=== PATIENT | male | born 1995 | race American Indian/Alaskan Native ===

== ENCOUNTER 2018-11-20 21:40 | Emergency (ER) | payer OTHER ==
--- NOTE | 2018-11-20 22:08 | Event Note ---
ED Screening Note ED Screening Note: testicular pain and dysuria This initial assessment/diagnostic orders/clinical plan/treatment(s) is/are sub ject to change based on patients health status, clinical progression and re- assessment by fellow clinical providers in the ED. Further treatment and workup at subsequent clinical providers discretion. Patient/guardian urged not to elope from the ED as their condition may be serious if not clinically assessed and managed. Initial orders include:
--- NOTE | 2018-11-20 23:37 | Ultrasound Report ---
PROCEDURE: US TESTICULAR DOPPLER COMP TECHNIQUE: Real-time villagomez-scale and color flow Doppler sonography in multiple planes of the scrotum, testicles, and epididymes was performed. Velocity spectral waveform analysis and color Doppler imagi ng of the arterial inflow and venous outflow of the testicles was performed with image documentation. HISTORY: testicular pain COMPARISONS: None . FINDINGS: RIGHT TESTICLE: Size: 3.8 x 2.2 x 3.3 cm. Echogenicity of the right testicle appears normal. No masses are seen. No evidence of hydrocele. Righ t epididymis is unremarkable. Arterial and venous flow seen with Doppler imaging. Epididymis showed n o abnormality. LEFT TESTICLE Size: 3.4 x 1.5 x 2.5 cm.. Echogenicity of the testicles appears homogeneous and normal in appearance. No mass is identified. No hydroceles are seen. Arterial and venous flow visualized in left testicle. 2.5 mm epididymal cyst vi sualized on the left. Epididymis otherwise unremarkable. IMPRESSION: Small epididymal cyst visualized on the left. No other abnormalities are seen. . This document is electronically signed by Robles Baron MD., November 20 2018 11:35:41 PM ET
[2018-11-21 00:21] VITALS: BP 118/76
[2018-11-21 00:28] LABS: Bilirubin,Urine NEG (Negative); Blood,Urine NEG (Negative); Color,Urine Yellow (Yellow); Mucus,Urine FEW /HPF; Protein,Urine <15 mg/dL mg/dL (Negative)
[2018-11-21] MEDS ORDERED: ZITHROMAX PO STA (00:48)
[2018-11-21] MEDS ORDERED: XYLOCAINE 1% MPF 5 mL INFILTRATI ONE (00:48)
[2018-11-21] MEDS ORDERED: ROCEPHIN IM STA (00:48)
--- NOTE | 2018-11-21 00:48 | Emergency Department Report ---
ED Male HPI - General Chief complaint: Urogenital-Male Stated complaint: UTI Time Seen by Provider: 11/20/18 22:06 Source: patient Mode of arrival: Ambulatory Limitations: No Limitations - History of Present Illness Initial comments: 23-year-old uncircumcised male presents to the emergency department complaining of having an STD complaining of green discharge MD Complaint: penile discharge, dysuria Location: penis Severity: mild Quality: burning Consistency: constant Improves with: none Worsens with: none - Related Data Sexually active: No Allergies Allergy/AdvReac Type Severity Reaction Status Date / Time No Known Allergies Allergy Verified 11/20/18 21:43 ED Review of Systems ROS: Stated complaint: UTI Other details as noted in HPI Constitutional: denies: chills, fever Eyes: denies: eye pain, eye discharge, vision change ENT: denies: ear pain, throat pain Respiratory: denies: cough, shortness of breath, wheezing Cardiovascular: denies: chest pain, palpitations Endocrine: no symptoms reported Gastrointestinal: denies: abdominal pain, nausea, diarrhea Genitourinary: dysuria, discharge. denies: urgency Musculoskeletal: denies: back pain, joint swelling, arthralgia Skin: denies: rash, lesions Neurological: denies: headache, weakness, paresthesias Psychiatric: denies: anxiety, depression Hematological/Lymphatic: denies: easy bleeding, easy bruising ED Past Medical Hx - Past Medical History Previous Medical History?: No - Surgical History Past Surgical History?: No - Social History Smoking Status: Never Smoker ED Physical Exam - General Limitations: No Limitations General appearance: alert, in no apparent distress - Head Head exam: Present: atraumatic, normocephalic - Eye Eye exam: Present: normal appearance - ENT ENT exam: Present: mucous membranes moist - Neck Neck exam: Present: normal inspection - Respiratory Respiratory exam: Present: normal lung sounds bilaterally. Absent: respiratory distress - Cardiovascular Cardiovascular Exam: Present: regular rate, normal rhythm. Absent: systolic murmur, diastolic murmur, rubs, gallop - GI/Abdominal GI/Abdominal exam: Present: soft, normal bowel sounds - Rectal Rectal exam: Present: deferred - Extremities Exam Extremities exam: Present: normal inspection - Back Exam Back exam: Present: normal inspection - Neurological Exam Neurological exam: Present: alert, oriented X3, CN II-XII intact - Psychiatric Psychiatric exam: Present: normal affect, normal mood - Skin Skin exam: Present: warm, dry, intact, normal color. Absent: rash ED Course Vital Signs 11/20/18 11/21/18 21:46 00:20 Temperature 98.9 F 98.6 F Pulse Rate 98 H 79 Respiratory 18 18 Rate Blood Pressure 141/86 Blood Pressure 118/76 [Right] O2 Sat by Pulse 98 98 Oximetry ED Medical Decision Making - Medical Decision Making 23-year-old male presents complaining of symptoms. He is really adamant that he has acquired an STD treatment. He is afebrile. He was provided with Rocephin and Zithromax treatment while in the ED and encouraged follow-up with primary care doctor outside or the health department for further management test needs Critical care attestation.: If time is entered above; I have spent that time in minutes in the direct care of this critically ill patient, excluding procedure time. ED Disposition Clinical Impression: Possible exposure to STD, Dysuria Disposition: DC-01 TO HOME OR SELFCARE Is pt being admited?: No Does the pt Need Aspirin: No Condition: Stable Instructions: Sexually Transmitted Diseases (ED), Safe Sex (ED) Referrals: PRIMARY CARE [Primary Care Provider] - 3-5 Days [facility] [Provider Group] - 3-5 Days
== END 2018-11-21 01:26 | disposition home or self-care (01) ==
LOC: ED 21:40
DX: R30.0 Dysuria (principal); R36.9 Urethral discharge, unspecified
CPT/HCPCS: 81001; 87086; 87591; 93975; 96372; 99284; J0696

== ENCOUNTER 2019-08-24 20:29 | Emergency (ER) | payer SELFPAY ==
[2019-08-24 21:48] LABS: Bilirubin,Urine NEG (Negative); Blood,Urine NEG (Negative); Color,Urine Yellow (Yellow); Mucus,Urine 3+ /HPF; Protein,Urine <15 mg/dL mg/dL (Negative)
[2019-08-24 21:53] LABS: Amphetamine Screen,Urine PRESUMPTIVE NEGATIVE; Benzodiazepines Screen,Urine PRESUMPTIVE NEGATIVE; Cocaine Screen,Urine PRESUMPTIVE NEGATIVE; Methadone Screen,Urine PRESUMPTIVE NEGATIVE; Opiate Screen,Urine PRESUMPTIVE NEGATIVE
[2019-08-24 22:04] LABS: Cannabinoid Screen,Urine PRESUMPTIVE POSITIVE
[2019-08-24 23:32] LABS: Basophils % (Auto) 0.5 % (0.0-1.8); Eosinophils # (Auto) 0.3 K/mm3 (0.0-0.4); Eosinophils % (Auto) 3.2 % (0.0-4.3); Hematocrit 41.7 % (35.5-45.6); Hemoglobin 13.9 gm/dl (11.8-15.2); Lymphocytes # (Auto) 3.2 K/mm3 (1.2-5.4); Lymphocytes % (Auto) 39.3 % (13.4-35.0); Mean Corpuscular HGB Conc 33 % (32-34); Mean Corpuscular Volume 87 fl (84-94); Monocytes # (Auto) 0.7 K/mm3 (0.0-0.8); Monocytes % (Auto) 8.5 % (0.0-7.3); Platelet Count 260 K/mm3 (140-440); Red Cell Distribution Width 13.2 % (13.2-15.2)
[2019-08-24 23:47] LABS: BUN/Creatinine Ratio 11; Blood Urea Nitrogen 9 mg/dL (9-20); Calcium 8.7 mg/dL (8.4-10.2); Hemolysis Index 7
--- NOTE | 2019-08-25 00:50 | Emergency Department Report ---
<HOLLI CAMACHO - Last Filed: 08/25/19 01:36> ED Psych HPI - General Chief Complaint: Psych Stated Complaint: SUIDICAL Source: patient Mode of arrival: Ambulatory Limitations: No Limitations - History of Present Illness Initial Comments: 24-year-old male with a past medical history schizophrenia bipolar presents to the hospital planing of suicidal ideation x3 to 4 days. Patient states his plan is to "bash his head in". Patient endorses visual hallucinations but denies auditory. He has not had any antipsychotic medication in the past 6 to 7 month s. He is abusing ecstasy and marijuana. He denies physical complaints. - Related Data Home Medications Medication Instructions Recorded Confirmed Last Taken risperiDONE [RisperDAL] 7 mg PO BID 08/26/19 08/26/19 Unknown Allergies Allergy/AdvReac Type Severity Reaction Status Date / Time No Known Allergies Allergy Verified 11/20/18 21:43 ED Review of Systems Comment: All other systems reviewed and negative ED Past Medical Hx - Past Medical History Previous Medical History?: Yes Hx Psychiatric Treatment: Yes (Schz, depression) - Surgical History Past Surgical History?: No - Social History Smoking Status: Unknown if ever smoked Substance Use Type: None - Medications Home Medications: Home Medications Medication Instructions Recorded Confirmed Last Taken Type risperiDONE [RisperDAL] 7 mg PO BID 08/26/19 08/26/19 Unknown History ED Physical Exam - General Limitations: No Limitations - Other Other exam information: General: No acute distress Head: Atraumatic Eyes: normal appearance ENT: Moist mucous membranes Neck: Normal appearance, no midline tenderness Chest: Clear to auscultation bilaterally CV: Regular rate and rhythm Abdomen: Soft, normal bowel sounds, nontender, nondistended, no rebound or guarding Back: Normal inspection Extremity: Normal inspection, full range of motion Neuro: Alert O x 3, no facial asymmetry, speech clear, no gross motor sensory deficit Psych: Appropriate behavior Skin: No rash ED Medical Decision Making - Lab Data Result diagrams: 08/24/19 22:39 08/24/19 22:39 - Medical Decision Making Patient complains of suicidal ideation as well as hallucinations. Also admits to substance abuse and noncompliance with psychiatric medications. Patient is medically clear for inpatient treatment. - Differential Diagnosis Suicidal, psychosis Critical Care Time: No ED Disposition Clinical Impression: Suicidal ideation, Psychosis, Medical clearance for psychiatric admission, Ecstasy abuse, Marijuana abuse Disposition: DC/TX-65 PSY HOSP/PSY UNIT Is pt being admited?: No Does the pt Need Aspirin: No Condition: Stable Referrals: PRIMARY CARE, [Primary Care Provider] - 3-5 Days <ANAY GRIFFIN - Last Filed: 08/28/19 10:09> ED Review of Systems ROS: Stated complaint: SUIDICAL Other details as noted in HPI ED Course Vital Signs 08/24/19 08/24/19 08/25/19 21:03 22:03 01:00 Temperature 98.3 F 98.1 F Pulse Rate 72 76 Respiratory 18 18 20 Rate Blood Pressure 151/81 146/70 [Right] O2 Sat by Pulse 97 96 Oximetry 08/25/19 08/25/19 08/25/19 07:00 13:00 20:00 Temperature 98.4 F 98.3 F 98.6 F Pulse Rate 67 78 63 Respiratory 16 18 18 Rate Blood Pressure 138/75 152/86 138/89 [Right] O2 Sat by Pulse 98 98 100 Oximetry 08/25/19 08/26/19 08/26/19 21:30 01:28 08:48 Temperature 97.9 F Pulse Rate 80 Respiratory 18 20 20 Rate Blood Pressure 140/70 [Right] O2 Sat by Pulse 100 100 100 Oximetry 08/26/19 08/26/19 08/26/19 09:41 13:55 20:21 Temperature 98.3 F 98.0 F 98.7 F Pulse Rate 72 72 77 Respiratory 20 20 18 Rate Blood Pressure 136/65 122/68 139/81 [Right] O2 Sat by Pulse 98 100 98 Oximetry 08/27/19 08/27/19 08/27/19 02:06 07:29 09:27 Temperature 98.4 F 98.0 F Pulse Rate 65 76 Respiratory 16 20 20 Rate Blood Pressure 118/71 139/91 [Right] O2 Sat by Pulse 98 97 97 Oximetry 08/27/19 14:19 Temperature 97.8 F Pulse Rate 88 Respiratory 20 Rate Blood Pressure 128/74 [Right] O2 Sat by Pulse 96 Oximetry ED Medical Decision Making - Lab Data Result diagrams: 08/24/19 22:39 08/24/19 22:39 - Medical Decision Making Due to aggressive hypersexual behavior, I have ordered seclusion in padded room. Critical care attestation.: If time is entered above; I have spent that time in minutes in the direct care of this critically ill patient, excluding procedure time. ED Disposition Is pt being admited?: No Does the pt Need Aspirin: No
[2019-08-25] MEDS ORDERED: ZIPRASIDONE MESYLATE 20 MG VIAL IM ONE (12:00)
--- NOTE | 2019-08-26 11:45 | Consultation ---
History of Present Illness - Reason for Consult Consult date: 08/26/19 Reason for consult: Psych eval - Chief Complaint Chief complaint: Depressed and suicidal - History of Present Psychiatric Illness Patient is a 24yo male with history of paranoid schizophrenia. This morning, he complains of hearing voices, endorses being depressed and suicidal. He consents to re-starting his medications which include Risperidone. He admits to not have been taking his medications. PAST PSYCHIATRIC HISTORY: Diagnoses: Schizophrenia Suicide attempts or Self-harm behavior: patient denies Prior psychiatric hospitalizations: yes Substance Abuse history: THC Family Psychiatric History None reported or documented ROS: Constitutional: Negative for weight loss ENT: Negative for stridor Respiratory: Negative for cough or hemoptysis All other systems reviewed and are negative MENTAL STATUS General Appearance and Behavior: age appropriate, good eye contact, cooperative with questioning and polite Cooperation: Cooperative Psychomotor Behavior: within normal limits Mood: depressed Affect and affective range: Congruent with stated mood Thought Process: Fluent/Logical and Goal-directed Thought Content: AH Speech: Normal volume and Regular rate and rhythm Intellectual Functioning Average Suicidal Ideation: Yes Homicidal Ideation: Denies HI Impulse Control: intact Insight and Judgment: normal insight and judgment Memory: Normal Attention: Normal Orientation: alert and oriented Diagnosis: Paranoid Schizophrenia RECOMMENDATIONS MEDICATIONS: Risperidone increased to 4mg bid Risks, benefits and alternatives of medications discussed with the patient, questions answered and consent obtained from patient. PSYCHOTHERAPY: Supportive psychotherapy provided [employer]ELOPER: Yes DISPOSITION: Acute inpatient psychiatric hospitalization when medically stable LEGAL STATUS: 1013 FOLLOW-UP: Will follow I have reviewed this treatment plan, including potential risks and benefits of medications, with the patient and/or family members and relevant hospital providers. Please contact with any questions and/or concerns. Medications and Allergies Allergies Allergy/AdvReac Type Severity Reaction Status Date / Time No Known Allergies Allergy Verified 11/20/18 21:43 Home Medications Medication Instructions Recorded Confirmed Last Taken Type risperiDONE [RisperDAL] 7 mg PO BID 08/26/19 08/26/19 Unknown History Active Meds: Active Medications Risperidone (Risperdal) 2 mg PO BID [facility] Mental Status Exam - Vital signs Last Vital Signs Temp 98.3 F 08/26/19 09:41 Pulse 72 08/26/19 09:41 Resp 20 08/26/19 09:41 BP 136/65 08/26/19 09:41 Pulse Ox 98 08/26/19 09:41 Results Result Diagrams: 08/24/19 22:39 08/24/19 22:39 All other labs normal.
[2019-08-26] MEDS: risperiDONE 1 MG TAB PO SCH (21:59)
[2019-08-26] MEDS ORDERED: NON-FORMULARY EACH (Risperidone [Risperdal] 2 MG) PO SCH (22:00)
[2019-08-26] MEDS ORDERED: risperiDONE 1 MG TAB PO SCH (22:00)
[2019-08-27] MEDS: risperiDONE 1 MG TAB PO SCH (10:16)
--- NOTE | 2019-08-27 11:58 | Progress Note ---
Subjective - Reason for Consult Consult date: 08/27/19 Reason for consult: Psych follow up - Chief Complaint Chief complaint: Depressed and suicidal SUBJECTIVE: Patient continues to be agitated and psychotic. He endorses feeling depressed, hearing voices and suicidal. ROS: Constitutional: Negative for weight loss ENT: Negative for stridor Respiratory: Negative for cough or hemoptysis All other systems reviewed and are negative MENTAL STATUS General Appearance and Behavior: age appropriate, good eye contact, cooperative with questioning and polite Cooperation: Cooperative Psychomotor Behavior: within normal limits Mood: depressed Affect and affective range: Congruent with stated mood Thought Process: Fluent/Logical and Goal-directed Thought Content: AH Speech: Normal volume and Regular rate and rhythm Intellectual Functioning Average Suicidal Ideation: Yes Homicidal Ideation: Denies HI Impulse Control: intact Insight and Judgment: normal insight and judgment Memory: Normal Attention: Normal Orientation: alert and oriented Diagnosis: Paranoid Schizophrenia RECOMMENDATIONS MEDICATIONS: Risperidone 4mg bid Risks, benefits and alternatives of medications discussed with the patient, questions answered and consent obtained from patient. PSYCHOTHERAPY: Supportive psychotherapy provided [employer]: Yes DISPOSITION: Acute inpatient psychiatric hospitalization when medically stable LEGAL STATUS: 1013 FOLLOW-UP: Will follow Please contact with any questions and/or concerns. Mental Status Exam - Vital signs Last Vital Signs Temp 98.0 F 08/27/19 07:29 Pulse 76 08/27/19 07:29 Resp 20 08/27/19 09:27 BP 139/91 08/27/19 07:29 Pulse Ox 97 08/27/19 09:27
[2019-08-27 14:20] VITALS: BP 128/74
== END 2019-08-27 16:17 ==
LOC: ED 20:29
DX: Z04.6 Encounter for general psychiatric examination, requested by authority (principal); R45.851 Suicidal ideations; F29 Unspecified psychosis not due to a substance or known physiological condition; F12.10 Cannabis abuse, uncomplicated; F20.9 Schizophrenia, unspecified; F32.9 Major depressive disorder, single episode, unspecified; Z79.899 Other long term (current) drug therapy
CPT/HCPCS: 36415; 80048; 80307; 81001; 85025; 96372; 99285; J3486; 80320; G0480

== ENCOUNTER 2021-08-30 17:08 | Emergency (ER) | payer SELFPAY | END 2021-08-30 17:13 | disposition left against medical advice (07) | LOC: ED 17:08 | DX: Z76.0 Encounter for issue of repeat prescription (principal); Z53.21 Procedure and treatment not carried out due to patient leaving prior to being seen by health care provider ==